=== PATIENT | male | born 1995 | race Caucasian/White ===

== ENCOUNTER 2016-08-08 10:35 | Inpatient (IN) | payer MEDICAID, OTHER ==
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
--- NOTE | 2016-08-08 11:38 | XR ---
EXAMINATION TYPE: XR wrist complete LT DATE OF EXAM: 08/08/2016 11:35 AM CLINICAL HISTORY: Punching injury with pain TECHNIQUE: Frontal, lateral, scaphoid, and oblique images of the left wrist are obtained. COMPARISON: None FINDINGS: There is no acute fracture/dislocation evident in the left wrist. The joint spaces in the left wrist appear within normal limits. The overlying soft tissue appears unremarkable. IMPRESSION: There is no acute fracture or dislocation in the left wrist.
[2016-08-08 18:48] VITALS: BMI 19.5
[2016-08-08] MEDS ORDERED: MAG HYDROX/AL HYDROX/SIMETH 30 ML CUP PO PRN (19:31)
[2016-08-08] MEDS ORDERED: ZIPRASIDONE 20 MG VIAL IM PRN (19:31)
[2016-08-08] MEDS ORDERED: ACETAMINOPHEN TAB 325 MG TAB PO PRN (19:31)
[2016-08-08] MEDS ORDERED: MAGNESIUM HYDROXIDE 2,400 MG/10 ML CUP PO PRN (19:31)
[2016-08-08] MEDS ORDERED: LORazepam 2 MG/ML SYRINGE IM PRN (19:33)
[2016-08-08] MEDS ORDERED: LORazepam 1 MG TAB PO PRN (19:33)
--- NOTE | 2016-08-09 08:53 | CONS ---
DATE OF CONSULTATION: REASON FOR CONSULTATION: Medical management. HISTORY OF PRESENT ILLNESS: Mr. Michaels is a 20-year-old male with known history of depression, presented to the ER with suicidal ideation. Apparently patient woke up in the morning and wanted to end it all. Patient has not been taking his medication for the past one week, saying that medication are making him too low and he punched his bed frame with his left hand earlier today and also he drank about a can of beer prior to arrival. Patient was intoxicated on admission. Otherwise, he denied any delusions, hallucinations, or aggressive behavior. Patient had a prior attempted suicide by hanging himself. Patient does have a history of psychiatry admission sometime in March last year. Currently, denied any complaints of chest pain. No nausea or vomiting or abdominal pain. No short of breath. No recent illnesses or sick contacts at home. REVIEW OF SYSTEMS: CONSTITUTIONAL: No fever. No chills. RESPIRATORY: No cough or sputum production. CARDIOVASCULAR: No chest pain. No short of breath. No leg swelling. ABDOMEN: No nausea or vomiting, abdominal pain. No diarrhea. GENITOURINARY: No dysuria or hematuria. ENDOCRINE: Negative. PSYCHIATRIC: ( ) All other fourteen-point review of systems negative except as above. PAST MEDICAL HISTORY: GERD, Asperger syndrome, depression, suicide attempt and bipolar disorder. PAST SURGICAL HISTORY: Appendectomy, left ankle surgery and right clavicular surgery, jaw surgery. PSYCHOSOCIAL HISTORY: Anxiety, bipolar disorder and depression. SOCIAL HISTORY: Patient is currently an everyday smoker; smokes about 2 packs per day. He does drink about 5 beers daily. Last drink was prior to admission. Patient does use marijuana daily basis. FAMILY HISTORY: Mother had cancer. Father had a history of bipolar and non-medicated. HOME MEDICATIONS: Currently none. ALLERGIES: No known drug allergies. PHYSICAL EXAMINATION: Mr. Michaels is a 20-year-old male lying in the bed, sitting in bed comfortably, awake, appears to be in no apparent distress. VITALS: Blood pressure is 123/65, pulse is 54, respiratory rate 16, temperature afebrile, pulse ox 98% on room air. HEENT: Atraumatic, normocephalic. Neck ( ) S1, S2 heard. No murmurs, no gallop. LUNGS: Bilateral air entry is present. No wheezing. No crackles. Nonlabored breathing. ABDOMEN: Soft, nontender. Bowel sounds are present. SIGN WRITER LETTERER OR PAINTER: Awake, alert, oriented x3. No focal neurologic deficits. EXTREMITIES: No edema. Pulses palpable bilaterally. No clubbing or cyanosis. PSYCHIATRIC: Cooperative, depressed and denied any suicidal ideation currently. LABORATORY DATA: Currently, laboratory data is not available at this time. UDS is positive for marijuana. X-rays of the wrist: There is no acute fracture or dislocation in the left wrist. IMPRESSION: 1. Depression with attempted suicide. 2. History of suicide attempt in the past and psychiatric admission. 3. Gastroesophageal reflux disease. 4. Alcohol abuse. Counseling for alcohol cessation and monitor for alcohol withdrawal symptoms. 5. Marijuana abuse. 6. Nicotine addiction. DISCUSSION AND PLAN: Patient will be continue to be monitored on the Psychiatric Unit. Patient was started on Geodon and Ativan p.r.n. Will continue to monitor for alcohol withdrawal symptoms and continue the current management and will follow up closely. Further recommendations based on the clinical course. Thank you for the consult.
[2016-08-09] MEDS: NICOTINE 14MG/24HR PATCH TRANSDERM SCH (08:54)
[2016-08-09 09:37] LABS: Basophils % (A) 1 %; CH 32.3; CHCM 34.3; Eosinophils # (A) 0.1 k/uL (0-0.7); Eosinophils % (A) 2 %; HCT 44.8 % (39.0-53.0); HDW 2.31; HGB 15.2 gm/dL (13.0-17.5); Luc # (Auto) 0.08; Luc % (Auto) 1; Lymphocytes # (A) 1.3 k/uL (1.0-4.8); Lymphocytes % (A) 25 %; MCH 32.1 pg (25.0-35.0); MCHC 33.9 g/dL (31.0-37.0); MCV 94.6 fL (80.0-100.0); Mean Platelet Volume 8.4; Monocytes # (A) 0.3 k/uL (0-1.0); Monocytes % (A) 6 %; Neutrophils # (A) 3.5 k/uL (1.3-7.7); Neutrophils % (A) 66 %; RBC 4.74 m/uL (4.30-5.90); RDW 12.1 % (11.5-15.5); WBC 5.3 k/uL (3.8-10.6); WBC (Perox) 5.44
[2016-08-09 09:47] LABS: ALT 26 U/L (21-72); AST 24 U/L (17-59); Alkaline Phosphatase 42 U/L (38-126); Anion Gap 11 mmol/L; Blood Urea Nitrogen 14 mg/dL (9-20); Calcium 10.2 mg/dL (8.4-10.2); Carbon Dioxide 27 mmol/L (22-30); Chloride 106 mmol/L (98-107); Glucose 105 mg/dL (74-99); Non-African American GFR(MDRD) >60 (>60 ml/min/1.73 sqM); Potassium 5.1 mmol/L (3.5-5.1); Sodium 144 mmol/L (137-145)
--- NOTE | 2016-08-09 11:50 | P.HP ---
Psychiatric H&P - . H&P Date: 08/09/16 History & Physical: Allergies Allergy/AdvReac Type Severity Reaction Status Date / Time No Known Allergies Allergy Verified 08/08/16 19:07 Vital Signs Temp 98.0 F 08/09/16 07:09 Pulse 54 L 08/09/16 07:09 Resp 18 08/09/16 07:09 BP 118/55 08/09/16 07:09 Pulse Ox 97 08/08/16 18:40 Intake & Output 08/08/16 08/09/16 08/09/16 18:59 06:59 18:59 Weight 67.4 kg 66.6 kg Laboratory Last Values WBC 5.3 k/uL (3.8-10.6) 08/09/16 09:08 RBC 4.74 m/uL (4.30-5.90) 08/09/16 09:08 Hgb 15.2 gm/dL (13.0-17.5) 08/09/16 09:08 Hct 44.8 % (39.0-53.0) 08/09/16 09:08 MCV 94.6 fL (80.0-100.0) 08/09/16 09:08 MCH 32.1 pg (25.0-35.0) 08/09/16 09:08 MCHC 33.9 g/dL (31.0-37.0) 08/09/16 09:08 RDW 12.1 % (11.5-15.5) 08/09/16 09:08 Plt Count 205 k/uL (150-450) 08/09/16 09:08 Neutrophils % 66 % 08/09/16 09:08 Lymphocytes % 25 % 08/09/16 09:08 Monocytes % 6 % 08/09/16 09:08 Eosinophils % 2 % 08/09/16 09:08 Basophils % 1 % 08/09/16 09:08 Neutrophils # 3.5 k/uL (1.3-7.7) 08/09/16 09:08 Lymphocytes # 1.3 k/uL (1.0-4.8) 08/09/16 09:08 Monocytes # 0.3 k/uL (0-1.0) 08/09/16 09:08 Eosinophils # 0.1 k/uL (0-0.7) 08/09/16 09:08 Basophils # 0.0 k/uL (0-0.2) 08/09/16 09:08 Sodium 144 mmol/L (137-145) 08/09/16 09:08 Potassium 5.1 mmol/L (3.5-5.1) 08/09/16 09:08 Chloride 106 mmol/L (98-107) 08/09/16 09:08 Carbon Dioxide 27 mmol/L (22-30) 08/09/16 09:08 Anion Gap 11 mmol/L 08/09/16 09:08 BUN 14 mg/dL (9-20) 08/09/16 09:08 Creatinine 1.00 mg/dL (0.66-1.25) 08/09/16 09:08 Est GFR (MDRD) Af Amer >60 (>60 ml/min/1.73 sqM) 08/09/16 09:08 Est GFR (MDRD) Non-Af >60 (>60 ml/min/1.73 sqM) 08/09/16 09:08 Glucose 105 mg/dL (74-99) H 08/09/16 09:08 Calcium 10.2 mg/dL (8.4-10.2) 08/09/16 09:08 Total Bilirubin 1.0 mg/dL (0.2-1.3) 08/09/16 09:08 AST 24 U/L (17-59) 08/09/16 09:08 ALT 26 U/L (21-72) 08/09/16 09:08 Alkaline Phosphatase 42 U/L (38-126) 08/09/16 09:08 Total Protein 8.0 g/dL (6.3-8.2) 08/09/16 09:08 Albumin 5.2 g/dL (3.5-5.0) H 08/09/16 09:08 TSH 1.670 mIU/L (0.465-4.680) 08/09/16 09:08 Urine Opiates Screen Not Detected (NotDetected) 08/08/16 11:30 Ur Oxycodone Screen Not Detected (NotDetected) 08/08/16 11:30 Urine Methadone Screen Not Detected (NotDetected) 08/08/16 11:30 Ur Propoxyphene Screen Not Detected (NotDetected) 08/08/16 11:30 Ur Barbiturates Screen Not Detected (NotDetected) 08/08/16 11:30 Valproic Acid <10.0 ug/mL 08/09/16 09:08 U Tricyclic Antidepress Not Detected (NotDetected) 08/08/16 11:30 Ur Phencyclidine Scrn Not Detected (NotDetected) 08/08/16 11:30 Ur Amphetamines Screen Not Detected (NotDetected) 08/08/16 11:30 U Methamphetamines Scrn Not Detected (NotDetected) 08/08/16 11:30 U Benzodiazepines Scrn Not Detected (NotDetected) 08/08/16 11:30 Urine Cocaine Screen Not Detected (NotDetected) 08/08/16 11:30 U Marijuana (THC) Screen Detected (NotDetected) H 08/08/16 11:30 08/09/16 11:35 IDENTIFYING DATA: 20-year-old single male patient. HPI: Patient admitted to the inpatient psychiatric unit [facility] on a voluntary basis with recent depression and thoughts of suicide. Patient reports that his had thoughts of suicide for approximately the past month time and a lot of depression for the past couple months. Says he attempted to kill himself before he came here, says he had a gun and was about to point it in his mouth but he told his dad and his dad called the police and they brought him here. Patient states that he has a stressor of his dad having a girlfriend and he was seeing someone but it's not as close as it was. He states that he started hearing some making out and he got upset so he was throwing stuff in his room and his dad called the able bodied seaman. He says in the past he has been hearing voices when he gets really down. He states that ever he goes in the hospital he thinks of the girlfriend of his. He admits to crying spells, decreased appetite. He admits to worrying a lot and worries about others more than he does himself. PAST PSYCHIATRIC HISTORY: He's had 6 previous psychiatric hospitalizations it sounds. He's been to [facility] in [place] in the past. When asked about suicide attempts he says like every other day and then when I asked this again he states that a couple of years ago he left the house and was talking about jumping off the bridge and was about to jump off but he stopped himself. He sees a counselor Zac at [facility] and Iesha who prescribes his medications. He most recently has been on Depakote Zoloft and Klonopin but he's been off of them for about a week. He also does state that his been taking Risperdal. He says he has been off his medications because he went back to drinking. He does have a history of diagnosis of bipolar disorder and he does have a history of manic episodes. Says the medications work for him when he took them consistently for a while. PMH: Denies ALLERGIES: No known ALLERGIES MEDICATIONS: Tylenol when necessary, Maalox when necessary, Ativan when necessary, milk of magnesia when necessary, Habitrol patch, Geodon when necessary CHEMICAL DEPENDENCY HISTORY: Used to drink daily, states he would start in the morning. Says he has not had many sobriety periods. He used to go to . He has a history of using meth, crack and cocaine. It also sounds like he has abused Xanax and Seroquel. FAMILY PSYCHIATRIC HISTORY: Not known at this time. FAMILY CHEMICAL DEPENDENCY HISTORY: None known at this time. SOCIAL HISTORY: Currently lives with his dad and stepmom. He has one step sister and 2 brothers. He does never been and does not have any children. Says he supposed to be going to school for as his "diploma. MENTAL STATUS EXAM: He is alert and cooperative with the interview. His eye contact is somewhat poor. He is tearful during the exam. His affect is restricted. His mood is described as depressed. He denies any current thoughts of harm to self or others. He does not appear to be responding to internal stimuli. He describes having some alcohol withdrawals and does have mild hand tremor. Cognitively appears very grossly intact. I do not note any significant disorientation or memory disturbance. His insight is adequate, judgment shows evidence of recent impairment. STRENGTHS/WEAKNESSES: Strengths-some support system; weaknesses-coping skills INTELLECTUAL FUNCTIONING: Average IMPRESSIONS: AXIS I : Bipolar disorder, depressed; generalized anxiety disorder; alcohol use disorder; history of polysubstance use disorder AXIS II: Deferred AXIS III: None significant AXIS IV: Relationship AXIS V: 30 PLAN: Patient admitted to the inpatient psychiatric unit on a voluntary basis. He'll placed on SP 15 minute precautions. Baseline laboratory workup and medical consultation will be ordered. We'll reinitiate psychotropic medications on Depakote ER thousand motives at bedtime for mood stabilization and Risperdal 2 mg at at time to assist with mood as well as to help prevent any psychosis symptoms. We'll initiate Zoloft at 50 more grams daily to help with depression and anxiety. He is on Ativan on a when necessary basis for any significant alcohol withdrawal or anxiety. We will look into any support systems. Estimated length of stay is 5-7 days. Prognosis is guarded. Dr. López will initiate care this patient starting tomorrow.
[2016-08-09] MEDS: SERTRALINE 50 MG TAB PO SCH (12:43)
[2016-08-09] MEDS: risperiDONE 2 MG TAB PO SCH (21:05)
[2016-08-09] MEDS: DIVALPROEX ER 500 MG TAB.ER.24H PO SCH (21:05)
[2016-08-10] MEDS: SERTRALINE 50 MG TAB PO SCH (09:03)
[2016-08-10] MEDS: NICOTINE 14MG/24HR PATCH TRANSDERM SCH (09:03)
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
[2016-08-10] MEDS: DIVALPROEX ER 500 MG TAB.ER.24H PO SCH (21:33)
[2016-08-10] MEDS: risperiDONE 2 MG TAB PO SCH (21:33)
[2016-08-11] MEDS: SERTRALINE 50 MG TAB PO SCH (09:09)
[2016-08-11] MEDS: NICOTINE 14MG/24HR PATCH TRANSDERM SCH (09:09)
--- NOTE | 2016-08-11 14:05 | P.PN ---
Progress Note - Text SUBJECTIVE: I reviewed the medical record, interviewed Mr. Michaels and discuss his treatment and treatment plan during team meeting. He is more depressed today. He is disheartened because he spoke with his father who told him that he may not return home. He described feeling hopeless and helpless but denied having suicidal thoughts, plans or intent. 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 Jose may not return home due to the threats towards his father and his father's girlfriend. His father stated that they are "in fear for her life" due to Jose's threats. Father is looking at getting apartment for the patient this week. OBJECTIVE: He presented as a casually groomed tall 20-year-old male who was pleasant on approach. He made intermittent eye contact. He sat mostly interview with his head bent over staring at the ground. He had no distinguishing features or prominent physical abnormalities. He had a depressed facial expression. He had psychomotor retardation but no abnormal involuntary movements. His speech was nonspontaneous with decreased rhythm and volume. His speech was dysarthric. His affect was depressed and not reactive. He denied current suicidal ideation or wishes. He denied homicidal ideation. He expressed depressive cognitions including hopelessness, helplessness and worthlessness. He didn't express ideas reference or paranoid ideation. His thinking is concrete but his associations were coherent, and goal directed. He denied hallucinations and did not appear to be responding to internal stimuli. ASSESSMENT: He complains of increasing depression, hopelessness and helplessness since his father will not let him to return home. PLAN: Continue inpatient hospitalizations due to continued depression and problems with disposition. Continue suicide precautions with 15 minute checks. Increase sertraline to 100 mg daily. Continue Depakote 1,000 mg at bedtime, risperidone 2 mg at bedtime. Continue the ziprasidone 20 mg IM by mouth twice a day when necessary for agitation and/or lorazepam 1 mg by mouth/IM every 8 hours when necessary for agitation. Encouraged continued participation in therapeutic groups and activities. Social work to coordinate disposition with her [facility]. Evaluate clinical status response to treatment daily basis.
[2016-08-11] MEDS: risperiDONE 2 MG TAB PO SCH (20:22)
[2016-08-11] MEDS: DIVALPROEX ER 500 MG TAB.ER.24H PO SCH (20:22)
[2016-08-12] MEDS: SERTRALINE 100 MG TAB PO SCH (08:57)
[2016-08-12] MEDS: NICOTINE 14MG/24HR PATCH TRANSDERM SCH (08:58)
--- NOTE | 2016-08-12 13:45 | P.PN ---
Progress Note - Text SUBJECTIVE: I reviewed the medical record, interviewed Mr. Michaels and discuss his treatment and treatment plan during team meeting. He is aware that he may not return home. He feels sad and expressed remorse over his behavior. He understands the reason that his father does not want him to return home. OBJECTIVE: He presented as a casually groomed 20-year-old male who was pleasant on approach. He has a depressed facial expression. He showed psychomotor retardation but no abnormal involuntary movements. His speech was not spontaneous and had decreased rhythm and volume. His speech was dysarthric. His affect was depressed and not reactive. He denied current suicidal ideation or wishes. He denied homicidal ideation. He expressed feelings of hopelessness, helplessness and worthlessness. He feels guilty and remorseful about his behavior and his father's home. He did not express ideas of reference or paranoid ideation. His thinking is concrete but his associations are coherent and logical. During team meeting health care social worker confirmed that he may not return to his father 's home. The [facility] liaison informed the team that he [facility] driver does not believe he "does not need" a intermediate. Unless his father finds a suitable apartment or a room and board we will need to discharge him to a [place] [facility] facility. ASSESSMENT: He is depressed, guilty and remorseful over his behavior at his father's home. He cannot return to his father's home and we are stymied on alternatives. PLAN: Continue inpatient psychiatric hospitalization until reaching clarify disposition. Continue Depakote 1000 mg at bedtime, Risperdal 2 mg at bedtime and sertraline 100 mg daily. Social work to coordinate disposition with family and [facility]. Encourage participation in therapeutic groups and activities. Evaluate clinical status response to treatment daily basis.
[2016-08-12] MEDS: DIVALPROEX ER 500 MG TAB.ER.24H PO SCH (20:56)
[2016-08-12] MEDS: risperiDONE 2 MG TAB PO SCH (20:57)
[2016-08-13 06:58] VITALS: BP 114/61; PULSE 43; RESP 12; TEMP 97.5
[2016-08-13] MEDS: NICOTINE 14MG/24HR PATCH TRANSDERM SCH (09:15)
[2016-08-13] MEDS: SERTRALINE 100 MG TAB PO SCH (09:15)
[2016-08-13 10:28] LABS: Amorphous Sediment,Urine Occasional /hpf; Appearance,Urine Clear (Clear); Bilirubin,Urine Negative (Negative); Glucose,Urine (UA) Negative (Negative); Ketones,Urine Trace (Negative); Leukocyte Esterase,Urine Trace (Negative); Mucus,Urine Rare /hpf; Nitrite,Urine Negative (Negative); PH, Urine 6.5 (5.0-8.0); Particle Count 4146; Protein,Urine Negative (Negative); Specific Gravity,Urine 1.016 (1.001-1.035); UA Billing (MACRO vs. MICRO) MICRO; Urobilinogen,Urine <2.0 mg/dL (<2.0); WBC,Urine 1 /hpf (0-5)
--- NOTE | 2016-08-13 16:12 | P.DS ---
Providers Date of admission: 08/08/16 12:45 Attending physician: Arsalan López MD Consults: 08/08/16 19:31 Consult Physician Routine Consulting Provider: Shanice Hamlin Consult Reason/Comments: follow up H & P Do you want consulting provider notified?: Already Contacted Primary care physician: Briseida Bran - Discharge Diagnosis(es) (1) Major depressive disorder, recurrent Current Visit: Yes Status: Chronic Priority: Low (2) Borderline intellectual functioning Current Visit: Yes Status: Chronic Priority: Medium (3) Impulse control disorder in adult Current Visit: Yes Status: Chronic Priority: High (4) Suicidal ideation Current Visit: No Status: Resolved Priority: Low Hospital Course: He is a 20-year-old single male who has a history of a developmental disability. According to the record he presented with depression and thoughts of suicide. He told the admitting psychiatrist that his dad brought him to the hospital because he told his father that he was thinking about shooting himself with a gun. He alleged that he was feeling depressed because he feels abandoned by his father. He was drinking alcohol (6 cans of beer) on Wednesday before admission and one can of beer in the day of admission. He is jealous of his father is spending less time with him since his father has a new girlfriend. However, he is no longer feeling distressed, angry or having thoughts of or suicide. We admitted him voluntarily to the psychiatric unit and provided a biopsychosocial assessment. The residential solar consultant sheriffs detective completed the initial physical exam and medical history. The residential solar consultant diagnoses included GERD, alcohol abuse, marijuana abuse and nicotine use disorder. He is developmentally disabled and has a history of a seizure disorder. He's been living with his father and he is shown recurrent behavioral problems including threats to himself. We resumed his outpatient medications including Depakote 1000 mg at bedtime, Risperdal 2 mg at bedtime and sertraline 100 mg daily. He did not require administration of when necessary medications for agitation or aggression. He denied thoughts of suicide soon after discharge and requested to return to his father's home. The socially responsible investment adviser spoke with his father who stated that he does not want Jose to return because he andhisgirlfriend are afraid of Jose. Jose accepted the news that he cannot return to his father's home without displaying behavioral dyscontrol. [facility] was not interested in providing [facility] services. The socially responsible investment adviser coordinated referral to a room and board with Jose's father. At the time of his discharge Jose denied depression or thoughts of or suicide. He denied psychotic symptoms such as auditory or visual hallucinations, ideas reference, thought insertion, thought broadcasting or thought control. He was excited about living independently and agreed to follow through with outpatient mental health treatment. Patient Condition at Discharge: Good Plan - Discharge Summary New Discharge Prescriptions: Divalproex ER [Depakote ER] 1,000 mg PO HS 30 Days Nicotine 14Mg/24Hr Patch [Habitrol] 1 patch TRANSDERM DAILY #7 patch Sertraline [Zoloft] 100 mg PO HS 30 Days risperiDONE [RisperDAL] 2 mg PO DAILY 30 Days Discharge Medication List Divalproex ER [Depakote ER] 1,000 mg PO HS 30 Days 08/13/16 [Rx] Nicotine 14Mg/24Hr Patch [Habitrol] 1 patch TRANSDERM DAILY #7 patch 08/13/16 [ Rx] Sertraline [Zoloft] 100 mg PO HS 30 Days 08/13/16 [Rx] risperiDONE [RisperDAL] 2 mg PO DAILY 30 Days 08/13/16 [Rx] Follow up Appointment(s)/Referral(s): [facility], [place] [Other] - 08/18/16 4:30 pm (Norma Reyes) [place] [facility] [Outside] - 08/18/16 3:40 pm (Zac Reese ) Patient Instructions/Handouts: Mood Disorders (DC), Suicide Prevention for Adults (DC) Activity/Diet/Wound Care/Special Instructions: activity and diet as tolerated. no guns or weapons in the home. please attend all follow up appointments as scheduled. take all medications as prescribed. refrain from any substances, drug or alcohol not prescribed by physician. please return to the ER if symptoms worsen. Discharge Disposition: HOME SELF-CARE
== END 2016-08-13 15:59 | disposition home or self-care (01) | DRG 885 ==
LOC: EC 10:35 → 3MHU 12:45
PROVIDERS: ADMIT Psychiatry & Neurology Psychiatry; ATTEND Psychiatry & Neurology Psychiatry
DX: F33.9 Major depressive disorder, recurrent, unspecified (principal); G40.909 Epilepsy, unspecified, not intractable, without status epilepticus; R45.851 Suicidal ideations; F10.239 Alcohol dependence with withdrawal, unspecified; F12.10 Cannabis abuse, uncomplicated; F17.210 Nicotine dependence, cigarettes, uncomplicated; F41.1 Generalized anxiety disorder; F63.9 Impulse disorder, unspecified; F84.5 Asperger's syndrome; K21.9 Gastro-esophageal reflux disease without esophagitis; Z91.5 Personal history of self-harm; Z79.899 Other long term (current) drug therapy
CPT/HCPCS: 80053; 80164; 80306; 81001; 84443; 85025; 99285

== ENCOUNTER 2016-10-14 10:14 | Emergency (ER) | payer OTHER ==
[2016-10-14] MEDS ORDERED: ONDANSETRON 4 MG/2 ML VIAL IVP STA (10:23)
[2016-10-14] MEDS ORDERED: SODIUM CHLORIDE 0.9% 1,000 ML IV STA (10:23)
[2016-10-14 10:24] LABS: Glucose,Whole Blood 82 mg/dL (75-99)
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
[2016-10-14 10:59] LABS: Basophils # (A) 0.1 k/uL (0-0.2); Basophils % (A) 1 %; CH 32.2; CHCM 33.8; Eosinophils # (A) 0.1 k/uL (0-0.7); Eosinophils % (A) 1 %; HCT 44.2 % (39.0-53.0); HGB 14.7 gm/dL (13.0-17.5); Luc # (Auto) 0.07; Luc % (Auto) 1; Lymphocytes # (A) 0.9 k/uL (1.0-4.8); Lymphocytes % (A) 18 %; MCH 31.8 pg (25.0-35.0); MCHC 33.3 g/dL (31.0-37.0); MCV 95.5 fL (80.0-100.0); Mean Platelet Volume 8.1; Monocytes # (A) 0.2 k/uL (0-1.0); Monocytes % (A) 4 %; Neutrophils % (A) 75 %; RBC 4.63 m/uL (4.30-5.90); RDW 12.3 % (11.5-15.5); WBC 5.3 k/uL (3.8-10.6); WBC (Perox) 5.12
[2016-10-14 11:11] LABS: ALT 30 U/L (21-72); AST 30 U/L (17-59); Alkaline Phosphatase 45 U/L (38-126); Amylase 69 U/L (30-110); Anion Gap 16 mmol/L; Blood Urea Nitrogen 17 mg/dL (9-20); Calcium 9.7 mg/dL (8.4-10.2); Carbon Dioxide 24 mmol/L (22-30); Chloride 105 mmol/L (98-107); Glucose 74 mg/dL (74-99); Non-African American GFR(MDRD) >60 (>60 ml/min/1.73 sqM); Potassium 4.2 mmol/L (3.5-5.1); Sodium 145 mmol/L (137-145); Total Bilirubin 0.8 mg/dL (0.2-1.3)
[2016-10-14 12:19] LABS: Glucose,Whole Blood 97 mg/dL (75-99)
[2016-10-14 13:06] VITALS: BP 107/92; PULSE 50; RESP 20; TEMP 98
== END 2016-10-14 13:06 | disposition home or self-care (01) ==
LOC: EC 10:14
DX: E16.2 Hypoglycemia, unspecified (principal); F10.10 Alcohol abuse, uncomplicated; R51 Headache; F31.9 Bipolar disorder, unspecified; F41.9 Anxiety disorder, unspecified; F17.200 Nicotine dependence, unspecified, uncomplicated; Z79.899 Other long term (current) drug therapy
CPT/HCPCS: 36415; 80053; 82150; 83690; 85025; 99285; 96374; 96361; J2405

== ENCOUNTER 2016-10-24 19:32 | Inpatient (IN) | payer MEDICAID, OTHER ==
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
[2016-10-25] MEDS ORDERED: ZIPRASIDONE 20 MG VIAL IM STA (00:04)
[2016-10-25] MEDS ORDERED: LORazepam 2 MG/ML SYRINGE IM STA (00:04)
[2016-10-25] MEDS ORDERED: ZIPRASIDONE 20 MG VIAL IM PRN (01:15)
[2016-10-25] MEDS ORDERED: LORazepam 1 MG TAB PO PRN (01:15)
[2016-10-25] MEDS ORDERED: MAG HYDROX/AL HYDROX/SIMETH 30 ML CUP PO PRN (01:15)
[2016-10-25] MEDS ORDERED: MAGNESIUM HYDROXIDE 2,400 MG/10 ML CUP PO PRN (01:15)
[2016-10-25] MEDS ORDERED: ACETAMINOPHEN TAB 325 MG TAB PO PRN (01:15)
[2016-10-25 11:20] LABS: Basophils % (A) 1 %; CH 32.1; CHCM 33.3; Eosinophils # (A) 0.1 k/uL (0-0.7); Eosinophils % (A) 3 %; HCT 48.7 % (39.0-53.0); HDW 2.17; HGB 15.8 gm/dL (13.0-17.5); Luc # (Auto) 0.09; Luc % (Auto) 2; Lymphocytes # (A) 1.9 k/uL (1.0-4.8); Lymphocytes % (A) 39 %; MCH 31.3 pg (25.0-35.0); MCHC 32.5 g/dL (31.0-37.0); MCV 96.6 fL (80.0-100.0); Mean Platelet Volume 7.9; Monocytes # (A) 0.3 k/uL (0-1.0); Monocytes % (A) 5 %; Neutrophils # (A) 2.4 k/uL (1.3-7.7); Neutrophils % (A) 50 %; RBC 5.04 m/uL (4.30-5.90); WBC 4.9 k/uL (3.8-10.6); WBC (Perox) 5.11
[2016-10-25 11:29] LABS: ALT 35 U/L (21-72); AST 34 U/L (17-59); Alkaline Phosphatase 41 U/L (38-126); Anion Gap 13 mmol/L; Blood Urea Nitrogen 14 mg/dL (9-20); Calcium 9.9 mg/dL (8.4-10.2); Carbon Dioxide 27 mmol/L (22-30); Chloride 105 mmol/L (98-107); Glucose 78 mg/dL (74-99); Non-African American GFR(MDRD) >60 (>60 ml/min/1.73 sqM); Potassium 4.1 mmol/L (3.5-5.1); Sodium 145 mmol/L (137-145); Total Protein 7.9 g/dL (6.3-8.2)
--- NOTE | 2016-10-25 14:09 | CONS ---
DATE OF CONSULTATION: REASON FOR CONSULTATION: Medical clearance. Patient is 20-year-old admitted for suicidal ideation. Patient denied any fever or chills. Patient denied any nausea, vomiting, abdominal pain. Patient attempted suicide with handful of Depakote. Patient is not ( ) at this point of time. Patient is clinically doing well. Vitals are stable. Patient will not need any inpatient medical hospitalization. REVIEW OF SYSTEMS: CONSTITUTIONAL: No fever, no malaise, no fatigue. HEENT: No recent visual problems or hearing problems. Denied any sore throat. CARDIOVASCULAR: No chest pain, orthopnea, PND, no palpitations, no syncope. PULMONARY: No shortness of breath, no cough, no hemoptysis. GASTROINTESTINAL: No diarrhea, no nausea, no vomiting, no abdominal pain. Normoactive bowel sounds. NEUROLOGICAL: No headaches, no weakness, no numbness. HEMATOLOGICAL: Denies any bleeding or petechiae. GENITOURINARY: Denies any burning micturition, frequency, or urgency. MUSCULOSKELETAL/RHEUMATOLOGICAL: Denies any joint pain, swelling, or any muscle pain. ENDOCRINE: Denies any polyuria or polydipsia. The rest of the 14 point review of systems is negative. Home medications include: Risperidone, Depakote and Sertraline. PAST MEDICAL HISTORY: Significant for gastroesophageal reflux disease, ( ) syndrome, appendectomy, orthopedic surgery, tonsillectomy, anxiety, bipolar disorder. SOCIAL HISTORY: Occasional marijuana use. Patient does smoke daily. Denied any alcohol abuse. FAMILY HISTORY: Significant for cancer, bipolar. PHYSICAL EXAMINATION: VITAL SIGNS: Temperature 98.3, pulse of 58, respiratory rate of 16. Blood pressure 122/72. Saturating at 100% on room air. GENERAL: The patient is alert and oriented x3, not in any acute distress. Well developed, well nourished. HEENT: Pupils are round and equally reacting to light. EOMI. No scleral icterus. No conjunctival pallor. Normocephalic, atraumatic. No pharyngeal erythema. No thyromegaly. CARDIOVASCULAR: S1 and S2 present. No murmurs, rubs, or gallops. PULMONARY: Chest is clear to auscultation, no wheezing or crackles. ABDOMEN: Soft, nontender, nondistended, normoactive bowel sounds. No palpable organomegaly. MUSCULOSKELETAL: No joint swelling or deformity. EXTREMITIES: No cyanosis, clubbing, or pedal edema. NEUROLOGICAL: Gross neurological examination did not reveal any focal deficits. SKIN: No rashes. LABORATORY DATA: CBC, CMP essentially within normal limits. Urine drug screen is positive for marijuana. ASSESSMENT AND PLAN: 1. Attempted suicide with Depakote. Patient does not need to be admitted to inpatient medicine for monitoring. The patient's vitals and lab data are essentially within normal limits. 2. Asperger syndrome, suicidal ideation and depression. Management as per primary service. 3. Marijuana use. Counseling was provided. 4. Nicotine abuse. Counseling was provided. Thank you for letting me participate in this patient's care. We will sign off at this point of time. No further recommendations from medical perspective. Please call us back if needed.
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
[2016-10-25] MEDS: SERTRALINE 100 MG TAB PO SCH (20:53)
[2016-10-25] MEDS: risperiDONE 2 MG TAB PO SCH (20:53)
[2016-10-25] MEDS: DIVALPROEX ER 500 MG TAB.ER.24H PO SCH (20:54)
[2016-10-25] MEDS ORDERED: DIVALPROEX ER 500 MG TAB.ER.24H PO SCH (21:00)
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
[2016-10-26] MEDS: DIVALPROEX ER 500 MG TAB.ER.24H PO SCH (21:38)
[2016-10-26] MEDS: risperiDONE 2 MG TAB PO SCH (21:39)
[2016-10-26] MEDS: SERTRALINE 100 MG TAB PO SCH (21:39)
--- NOTE | 2016-10-27 10:21 | P.PN ---
Progress Note - Text Interval history: The patient is found in his room he follows me to an interview room. He reports his mood is "okay". He reports having some difficulty sleeping last night appetite is stable. He is troubled by a recent phone call from his father's girlfriend. He states she continues to accuse him of things. He admits that "she annoys me" and he will yell and break things when they argue. He states that she excessively drinks alcohol which makes matters worse. The patient feels that he is adapting to the increased dose of Depakote. He has no questions related to his medication. He is not sure where he will reside upon discharge. Mental status exam: The patient is a thin male appearing his stated age. He has a disheveled appearance he is wearing the same clothing is yesterday. Eye contact is intermittent speech is fluent slow and mainly responsive to questions asked. Insight and judgment chronically limited cognitive abilities chronically limited. He reports feeling safe in the hospital he continues to feel frustrated with his father's girlfriend. He is endorsing no auditory or visual hallucinations he is endorsing no specific delusions. He does not appear hypomanic or manic. He demonstrates no verbal or physical aggressiveness. Plan: The patient will continue on the Depakote we will draw a level in the next 2 days. We will discuss placement options for him. We will continue to monitor him for safety and encourage his participation in the milieu.
[2016-10-27] MEDS: SERTRALINE 100 MG TAB PO SCH (21:37)
[2016-10-27] MEDS: DIVALPROEX ER 500 MG TAB.ER.24H PO SCH (21:37)
[2016-10-27] MEDS: risperiDONE 2 MG TAB PO SCH (21:37)
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
[2016-10-28] MEDS: DIVALPROEX ER 500 MG TAB.ER.24H PO SCH (20:49)
[2016-10-28] MEDS: SERTRALINE 100 MG TAB PO SCH (20:50)
[2016-10-28] MEDS: risperiDONE 2 MG TAB PO SCH (20:50)
--- NOTE | 2016-10-29 10:58 | P.PN ---
Progress Note - Text Interval history: The patient is found in his room he reports he feels tired. He states he typically does not get up early in the morning and sleeps in. He reports that he will attend afternoon groups. Social work informed me that the patient's grandparents have made contact with our mental health unit and they may be able to provide assistance with placement. The patient is also on the skilled nursing list through [facility] as we all agree that the patient would not be able to appropriately care for himself unassisted. The patient's Depakote level is in the therapeutic range at 93.4 liver function enzymes are within normal limits. Mental status exam: The patient is alert he is lying in bed eye contact is appropriate speech is fluent spontaneous nonpressured. He has a disheveled appearance. He is reporting no acute suicidal or homicidal ideation intent or plan he endorses no symptoms of psychosis. He does not appear hypomanic or manic. There is no verbal or physical aggressiveness. No abnormal involuntary movements observed. Affect is constricted. Insight and judgment chronically impaired. Plan: The patient will continue on his current medications. We are exploring appropriate placement options for him which may involve his grandparents. We will continue to monitor him for safety and encourage his full participation in the milieu.
[2016-10-29] MEDS: SERTRALINE 100 MG TAB PO SCH (20:39)
[2016-10-29] MEDS: risperiDONE 2 MG TAB PO SCH (20:39)
[2016-10-29] MEDS: DIVALPROEX ER 500 MG TAB.ER.24H PO SCH (20:39)
--- NOTE | 2016-10-30 09:32 | P.PN ---
Progress Note - Text Interval history: The patient is found in his room he follows me to an interview room. He reports having a phone conversation with his grandparents and apparently they are working on helping him find placement. He states he expects placement will be in this area. He has been going to meals he selectively attend groups in the afternoon he tends to stay in his room in the morning stating "I'm not a morning person". He has no questions or concerns regarding his medications. Mental status exam: The patient is cooperative he has a disheveled appearance he is dressed in his own clothing. Eye contact is intermittent. He reports his mood is "fine" affect is constricted. He is reporting no suicidal or homicidal ideation intent or plan he is endorsing no auditory or visual hallucinations there is no evidence of psychosis. He is demonstrating no aggressive behavior at this time. He does have a history of impulsive agitation however. Insight and judgment chronically limited. Plan: The patient will continue on his current medications, we continue to seek appropriate placement for this patient upon discharge. Social work is communicating with the patient's grandparents to assist. We will continue to monitor him for safety. Vital signs reviewed.
[2016-10-30] MEDS: DIVALPROEX ER 500 MG TAB.ER.24H PO SCH (21:14)
[2016-10-30] MEDS: risperiDONE 2 MG TAB PO SCH (21:14)
[2016-10-30] MEDS: SERTRALINE 100 MG TAB PO SCH (21:15)
--- NOTE | 2016-10-31 09:40 | P.PN ---
Progress Note - Text Interval history: The patient is found in his room. He was observed earlier this morning coming from the dining room he reports eating breakfast. He states that he slept throughout the night. He inquires as to when he will be discharged and we continue to explore appropriate placement options. He is on the [facility] nursing home wait list and social work is also working with the patient's grandparents to try to arrange alternative placement. They do not want him living in their home however. The patient reports no agitated behavior no aggressive feelings. He continues to isolate in his room in the morning and comes out of his room in the afternoon. Mental status exam: The patient's a thin male appearing his stated age. He has a disheveled appearance hygiene is fair. Eye contact is appropriate speech is fluent. He provides brief answers to questions asked. He is reporting no suicidal or homicidal ideation intent or plan. He is endorsing no auditory or visual hallucinations he endorses no specific delusions. He demonstrates no verbal or physical aggressiveness. He does not appear hypomanic or manic currently. He remains oriented to person place and date. He has chronic cognitive limitations insight and judgment chronically limited. Plan: The patient will continue on his current medications. Vital signs reviewed. His heart rate has been low several times during the admission today is the lowest at 33. We previously ordered an EKG and are awaiting those results. It appears he had a normal heart rate is 76 yesterday afternoon. We will continue to monitor. He is reporting no dizziness chest pain or any other physical symptoms at this time. We will continue to monitor for safety and encourage full participation in the milieu.
[2016-10-31 18:48] LABS: Amorphous Sediment,Urine Occasional /hpf; Appearance,Urine Turbid (Clear); Bacteria,Urine Rare /hpf; Bilirubin,Urine Negative (Negative); Glucose,Urine (UA) Negative (Negative); Ketones,Urine 1+ (Negative); Leukocyte Esterase,Urine Negative (Negative); Nitrite,Urine Negative (Negative); PH, Urine 7.5 (5.0-8.0); Particle Count 7443; Protein,Urine Negative (Negative); Specific Gravity,Urine 1.017 (1.001-1.035); UA Billing (MACRO vs. MICRO) MICRO; Urobilinogen,Urine <2.0 mg/dL (<2.0); WBC,Urine 20 /hpf (0-5)
[2016-10-31] MEDS: risperiDONE 2 MG TAB PO SCH (20:49)
[2016-10-31] MEDS: DIVALPROEX ER 500 MG TAB.ER.24H PO SCH (20:50)
[2016-10-31] MEDS: SERTRALINE 100 MG TAB PO SCH (20:50)
[2016-10-31] MEDS ORDERED: CIPROFLOXACIN HCL 500 MG TAB ONE (22:17)
[2016-11-01] MEDS: CIPROFLOXACIN HCL 500 MG TAB PO SCH ×2 (09:42→20:49)
--- NOTE | 2016-11-01 10:18 | P.PN ---
Progress Note - Text Interval history: The patient's is found in his room he is awake lying in bed. He was up early this morning for breakfast. He typically does not attend groups in the morning but states he does in the afternoon. He is reporting no current mood symptoms. He is looking forward to a visit from his grandparents this evening. He has no questions regarding current medications. Vital signs reviewed. Heart rate continues to be bradycardic however he does have some normal readings as well. EKG demonstrated sinus bradycardia. He is reporting no dizziness and no difficulties with ambulation. Mental status exam: The patient is alert lying in bed he participates in the conversation appropriately. He states his mood is fine he is looking forward to being discharged. He is reporting no suicidal or homicidal ideation intent or plan. He is endorsing no auditory or visual hallucinations no specific delusions. Speech is spontaneous fluent nonpressured. Thought process is linear there is no flight of ideas loose associations or tangential thinking. He demonstrates no verbal or physical aggressiveness. Insight and judgment improving. No abnormal involuntary movements observed. Plan: The patient will continue on his current psychotropic medications. We will continue to monitor his vital signs. He is encouraged to participate in the milieu in the morning hours and ambulate more. We are waiting appropriate placement for him.
[2016-11-01] MEDS: DIVALPROEX ER 500 MG TAB.ER.24H PO SCH (20:49)
[2016-11-01] MEDS: risperiDONE 2 MG TAB PO SCH (20:49)
[2016-11-01] MEDS: SERTRALINE 100 MG TAB PO SCH (20:49)
[2016-11-02 09:52] LABS: Basophils % (A) 1 %; CH 31.9; CHCM 33.5; Eosinophils # (A) 0.2 k/uL (0-0.7); Eosinophils % (A) 4 %; HCT 43.5 % (39.0-53.0); HDW 2.15; HGB 14.4 gm/dL (13.0-17.5); Luc # (Auto) 0.09; Luc % (Auto) 2; Lymphocytes # (A) 2.2 k/uL (1.0-4.8); Lymphocytes % (A) 40 %; MCH 31.6 pg (25.0-35.0); MCHC 33.1 g/dL (31.0-37.0); MCV 95.5 fL (80.0-100.0); Mean Platelet Volume 8.1; Monocytes # (A) 0.4 k/uL (0-1.0); Monocytes % (A) 7 %; Neutrophils # (A) 2.6 k/uL (1.3-7.7); Neutrophils % (A) 47 %; RBC 4.56 m/uL (4.30-5.90); WBC 5.4 k/uL (3.8-10.6); WBC (Perox) 5.57
[2016-11-02] MEDS: CIPROFLOXACIN HCL 500 MG TAB PO SCH ×2 (09:53→20:50)
--- NOTE | 2016-11-02 10:24 | P.PN ---
Progress Note - Text Interval history: The patient is found in his room he is awake. He reports that his grandparents did visit. He [facility] who gave him an [facility] listing as well. He describes excessive fatigue still in the morning and wonders if it is related to our titration of Depakote. We decided we would reduce the dose by 250 mg. The patient continues to eat he isolates in his room not participating in groups. Mental status exam: The patient is lying in bed he is covered with a blanket eye contact is appropriate speech is fluent spontaneous nonpressured. He demonstrates an appropriate range of affect. He states his mood is "good". He denies having any suicidal or homicidal ideation intent or plan. He is reporting no auditory or visual hallucinations. He is demonstrating no verbal or physical aggressiveness. Insight and judgment chronically limited. He is endorsing no specific delusions. He is oriented. Plan: The patient will continue on the Depakote ER but we will reduce the total dose to 1250 mg in the evening. He will continue on the Risperdal and Zoloft as written. Vital signs reviewed he continues to be bradycardic but the last 2 readings have been mildly improved. Again he denies any symptoms of dizziness. Fatigue could be related to bradycardia.
[2016-11-02 10:46] LABS: Anion Gap 10 mmol/L; Blood Urea Nitrogen 14 mg/dL (9-20); Calcium 9.7 mg/dL (8.4-10.2); Carbon Dioxide 31 mmol/L (22-30); Chloride 102 mmol/L (98-107); Glucose 74 mg/dL (74-99); Non-African American GFR(MDRD) >60 (>60 ml/min/1.73 sqM); Potassium 4.8 mmol/L (3.5-5.1); Sodium 143 mmol/L (137-145)
[2016-11-02] MEDS: DIVALPROEX ER 250 MG TAB.ER.24H PO SCH (20:50)
[2016-11-02] MEDS: SERTRALINE 100 MG TAB PO SCH (20:51)
[2016-11-02] MEDS: risperiDONE 2 MG TAB PO SCH (20:51)
--- NOTE | 2016-11-03 08:28 | P.PN ---
Progress Note - Text Interval history: The patient is found in the hallway as he was heading to the dining room for breakfast. He follows me to an interview room. He reports he slept well last night staff documented 7 hours. Appetite is stable. We discussed his bradycardia as a contributing etiology to his feelings of fatigue. Vital signs reviewed heart rate remains variable. He reports no dizziness he ambulates without ataxia. We have requested further input from internal medicine. The patient's selectively attended groups mostly in the afternoon. His grandparents have sought out guardianship and we are waiting assisted placement has a temporary means of getting him into his own apartment. The patient has no further questions or concerns regarding his medication. Status exam: The patient is a thin male appearing his stated age he seated calmly is a disheveled appearance hygiene is adequate. Speech is responsive to questions asked with no spontaneous speech today. He maintains a constricted affect. He reports his mood is "fine". He reports no suicidal or homicidal ideation intent or plan. He is endorsing no auditory or visual hallucinations. He has not demonstrated any agitated behavior. Insight and judgment chronically limited. He is oriented. Plan: The patient's will be continued on his current psychotropic medications. We have asked for further internal medicine input regarding bradycardia. He may just need further workup as an outpatient with cardiology likely Holter monitoring. We are waiting assisted placement. We will continue to monitor the patient for safety.
[2016-11-03] MEDS: CIPROFLOXACIN HCL 500 MG TAB PO SCH ×2 (10:02→20:52)
[2016-11-03] MEDS: DIVALPROEX ER 250 MG TAB.ER.24H PO SCH (20:52)
[2016-11-03] MEDS: SERTRALINE 100 MG TAB PO SCH (20:52)
[2016-11-03] MEDS: risperiDONE 2 MG TAB PO SCH (20:52)
[2016-11-04 07:22] VITALS: BP 93/51; PULSE 38; RESP 16; TEMP 98.6
--- NOTE | 2016-11-04 09:50 | P.DS ---
Providers Date of admission: 10/25/16 00:06 Expected date of discharge: 11/04/16 Attending physician: Angel Luis Islas Consults: 10/25/16 01:15 Consult Physician Routine Consulting Provider: Shanice Hamlin Consult Reason/Comments: H and P with medical follow up Do you want consulting provider notified?: Yes, Notify in am 11/01/16 10:49 Consult Physician Routine Consulting Provider: Faith Kevin Consult Reason/Comments: bradycardia Do you want consulting provider notified?: Yes Primary care physician: Briseida Bran - Discharge Diagnosis(es) (1) Depression Current Visit: Yes Status: Acute Priority: High (2) Borderline intellectual functioning Current Visit: Yes Status: Acute Priority: Medium Hospital Course: Brief summary of admission note: This patient is a 20-year-old single male who was admitted to the mental health unit by Dr. Hogan for agitated behavior with some suicidal thinking. The patient explained to me that he had become acutely upset that his father's girlfriend had accused him of stealing her Xanax. He states that he did not and that she in fact drinks all day. He became admittedly acutely agitated. There was report that he attempted to overdose with Depakote but was stopped. He presented to the emergency room and was subsequently admitted. For full details please refer to Dr. Hogan's psychiatric evaluation dated 10/25/2016. Summary of hospital course: The patient was admitted to the mental health unit he signed in voluntarily. We reviewed his presenting symptoms [facility] records and Dr. Hogan's evaluation. He had been managed with Risperdal and Zoloft as well as Depakote. The Depakote was increased. His initial Depakote level was subtherapeutic the subsequent level was found to be therapeutic on the increased dose. The patient had some initial agitation in the evenings early into the admission but this subsided and he has demonstrated no agitated behavior for approximately the last week. He was residing with his father's girlfriend however he is not able to return there. His father is currently incarcerated. The patient does have grandparents in the [facility] and they have obtained temporary guardianship of the patient. We discussed appropriate placement and he will be going to [facility] temporarily until more independent living is appropriately arranged. The patient reported feeling tired in the morning he usually got up early afternoon and participated in groups. He did get up for breakfast each morning. He has a chronic bradycardia an EKG was performed which was demonstrating a sinus rhythm. He will need to follow-up as an outpatient further. His Depakote was initially increased to 1500 mg at bedtime this was reduced to 1250 mg at bedtime trying to alleviate any sedation in the morning. He was found to have a urinary tract infection and was started on antibiotic. Mental status exam: The patient is a thin male he is alert eye contact is appropriate speech is fluent and he responds to questions asked. He demonstrates no verbal or physical aggressiveness. He states his mood is "good ". He denies having any suicidal or homicidal ideation intent or plan. He is endorsing no auditory or visual hallucinations he endorses no specific delusions there is no overt evidence of psychosis. He is not appear hypomanic or manic. He is demonstrating no tangential thinking loose associations or flight of ideas. He remains oriented to person place month and year. He demonstrates no abnormal involuntary movements. Affect in general is constricted there is some reactivity in terms of affect at times. Insight and judgment have sufficiently improved he is aware that his grandparents are his guardian and that he will be going to a [facility] temporarily until other placement can be arranged. Impressions 1. Depression unspecified, rule out major depressive disorder versus bipolar depression, borderline intellectual functioning, history of cannabis and cocaine use disorders Plan: The patient will be discharged mental health unit today he will be transferred to [facility] temporarily until other placement is found. His grandparents are his legal guardian. He will continue on Risperdal 2 mg at bedtime, Zoloft 100 mg at bedtime, Depakote ER 1250 mg at bedtime, he will complete a course of Cipro for a urinary tract infection. He is instructed to abstain from any use of alcohol marijuana or illicit drugs. He does not wish to participate in inpatient chemical dependency treatment but is willing to discuss these issues further with his outpatient the mental health appointment. Social work will confirm his appointment with [facility]. He is not imminent safety risk and is appropriate for transition to outpatient care. He is instructed to return to the hospital any acute safety concerns. Patient Condition at Discharge: Stable Plan - Discharge Summary New Discharge Prescriptions: Ciprofloxacin HCl [Cipro] 500 mg PO BID #4 tab Divalproex ER [Depakote ER] 1,250 mg PO HS #30 tab Divalproex ER [Depakote ER] 1,000 mg PO HS 30 Days risperiDONE [RisperDAL] 2 mg PO HS #30 Sertraline [Zoloft] 100 mg PO HS 30 Days Discharge Medication List Ciprofloxacin HCl [Cipro] 500 mg PO BID #4 tab 11/04/16 [Rx] Divalproex ER [Depakote ER] 1,000 mg PO HS 30 Days 11/04/16 [Rx] Divalproex ER [Depakote ER] 1,250 mg PO HS #30 tab 11/04/16 [Rx] Sertraline [Zoloft] 100 mg PO HS 30 Days 11/04/16 [Rx] risperiDONE [RisperDAL] 2 mg PO HS #30 11/04/16 [Rx] Follow up Appointment(s)/Referral(s): Shant Goins MD [Primary Care Provider] - 1-2 days
[2016-11-04] MEDS: CIPROFLOXACIN HCL 500 MG TAB PO SCH (10:22)
== END 2016-11-04 18:15 | disposition home or self-care (01) | DRG 885 ==
LOC: EC 19:32 → 3MHU 10-25 00:06
PROVIDERS: ADMIT Psychiatry & Neurology Psychiatry; ATTEND Psychiatry & Neurology Psychiatry
DX: F31.9 Bipolar disorder, unspecified (principal); R45.851 Suicidal ideations; N39.0 Urinary tract infection, site not specified; F84.5 Asperger's syndrome; F41.1 Generalized anxiety disorder; F17.200 Nicotine dependence, unspecified, uncomplicated; F12.90 Cannabis use, unspecified, uncomplicated; K21.9 Gastro-esophageal reflux disease without esophagitis; R41.83 Borderline intellectual functioning; Z79.899 Other long term (current) drug therapy; Z81.8 Family history of other mental and behavioral disorders
CPT/HCPCS: 80048; 80053; 80164; 80306; 81001; 82075; 84443; 84450; 84460; 85025; 93005

== ENCOUNTER 2017-11-29 20:08 | Emergency (ER) | payer OTHER ==
[2017-11-29 20:20] VITALS: RESP 18
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
[2017-11-29 21:29] LABS: Amphetamine Screen,Urine Not Detected (NotDetected); Barbiturate Screen,Urine Not Detected (NotDetected); Benzodiazepines Screen,Urine Not Detected (NotDetected); Cocaine Screen,Urine Not Detected (NotDetected); Methadone Screen, Urine Not Detected (NotDetected); Opiate Screen,Urine Not Detected (NotDetected); Oxycodone Screen, Urine Not Detected (NotDetected); Phencyclidine Screen,Urine Not Detected (NotDetected); Tricyclic Antidepressant,Urine Not Detected (NotDetected); Urn Cannabinoid Scrn Not Detected (NotDetected)
[2017-11-29 23:20] VITALS: BP 119/66; PULSE 64; TEMP 99.1
== END 2017-11-29 23:58 | disposition home or self-care (01) ==
LOC: EC 20:08
DX: T14.91XA Suicide attempt, initial encounter (principal); F31.9 Bipolar disorder, unspecified; F17.200 Nicotine dependence, unspecified, uncomplicated; Z79.899 Other long term (current) drug therapy; X83.8XXA Intentional self-harm by other specified means, initial encounter; Y92.099 Unspecified place in other non-institutional residence as the place of occurrence of the external cause
CPT/HCPCS: 80306; 82075; 99285

== ENCOUNTER 2018-04-23 03:05 | Inpatient (IN) | payer OTHER ==
[2018-04-23] MEDS ORDERED: ETOMIDATE 2 MG/ML 10 ML VIAL IVP STA (03:56)
[2018-04-23] MEDS: PROPOFOL 1,000 MG in EMPTY BAG 1 BAG IV ONE ×2 (03:56→13:23)
[2018-04-23] MEDS ORDERED: SUCCINYLCHOLINE CHLORIDE VIAL 200 MG/10 ML VIAL IV STA (03:56)
--- NOTE | 2018-04-23 04:11 | XR ---
EXAMINATION TYPE: XR chest 1V confirm line [facility] DATE OF EXAM: 04/23/2018 COMPARISON: 12/09/2013 HISTORY: Check tube placement TECHNIQUE: Single frontal view of the chest is obtained. FINDINGS: Endotracheal tube is 7 cm from the jasper. Lungs are clear. There is no heart failure. The re is plate fixating the right clavicle. There is no pneumothorax. There are chest leads. Heart size is fairly normal. IMPRESSION: No active cardiopulmonary disease. No change.
[2018-04-23 04:14] LABS: Basophils # (A) 0.1 k/uL (0-0.2); Basophils % (A) 1 %; Eosinophils # (A) 0.3 k/uL (0-0.7); Eosinophils % (A) 4 %; Lymphocytes # (A) 3.5 k/uL (1.0-4.8); Lymphocytes % (A) 40 %; MCH 31.1 pg (25.0-35.0); MCHC 33.3 g/dL (31.0-37.0); MCV 93.2 fL (80.0-100.0); Mean Platelet Volume 7.9; Monocytes # (A) 0.4 k/uL (0-1.0); Monocytes % (A) 5 %; Neutrophils # (A) 4.3 k/uL (1.3-7.7); Neutrophils % (A) 49 %; Platelet Count 170 k/uL (150-450); RDW 12.3 % (11.5-15.5); WBC 8.8 k/uL (3.8-10.6)
[2018-04-23] MEDS ORDERED: LORazepam 2 MG/ML INJ IV STA ×2 (04:20→04:45)
[2018-04-23 04:24] LABS: Anion Gap 10 mmol/L; Blood Urea Nitrogen 15 mg/dL (9-20); Calcium 8.4 mg/dL (8.4-10.2); Carbon Dioxide 23 mmol/L (22-30); Chloride 112 mmol/L (98-107); Glucose 81 mg/dL (74-99); Potassium 3.6 mmol/L (3.5-5.1); Sodium 145 mmol/L (137-145)
[2018-04-23 04:33] LABS: Alcohol 293 mg/dL
[2018-04-23 04:40] LABS: Appearance,Urine Clear (Clear); Bilirubin,Urine Negative (Negative); Blood,Urine Negative (Negative); Color,Urine Light Yellow; Glucose,Urine (UA) Negative (Negative); Ketones,Urine Negative (Negative); Leukocyte Esterase,Urine Negative (Negative); Nitrite,Urine Negative (Negative); Protein,Urine Negative (Negative); Specific Gravity,Urine 1.005 (1.001-1.035); Urobilinogen,Urine <2.0 mg/dL (<2.0)
[2018-04-23 05:01] LABS: ABG Base Excess -0.3 mmol/L; ABG HCO3 25 mmol/L (21-25); ABG PCO2 44 mmHg (35-45); ABG PH 7.37 (7.35-7.45); ABG PO2 >400 mmHg (83-108); ABG TCO2 26 mmol/L (19-24)
[2018-04-23 05:08] LABS: Amphetamine Screen,Urine Not Detected (NotDetected); Barbiturate Screen,Urine Not Detected (NotDetected); Benzodiazepines Screen,Urine Not Detected (NotDetected); Cocaine Screen,Urine Not Detected (NotDetected); Methadone Screen, Urine Not Detected (NotDetected); Opiate Screen,Urine Not Detected (NotDetected); Oxycodone Screen, Urine Not Detected (NotDetected); Phencyclidine Screen,Urine Not Detected (NotDetected); Tricyclic Antidepressant,Urine Not Detected (NotDetected); Urn Cannabinoid Scrn Not Detected (NotDetected)
[2018-04-23] MEDS ORDERED: ONDANSETRON 4 MG/2 ML VIAL IVP STA (06:03)
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
--- NOTE | 2018-04-23 06:20 | CT ---
EXAM: CT Head Without Intravenous Contrast CLINICAL HISTORY: AMS, ETOH TECHNIQUE: Axial computed tomography images of the head/brain without intravenous contrast. DLP is 1222.4 mGy-cm. This CT exam was performed using one or more of the following dose reduction techniques: automated exposure control, adjustment of the mA and/or kV according to patient size, and/or use of iterative reconstruction technique. COMPARISON: CT head dated 02/19/2014. FINDINGS: Brain: No evidence of acute transcortical infarct or acute intracranial hemorrhage. No significant white matter disease. Ventricles: Unremarkable. No ventriculomegaly. Bones/joints: Unremarkable. No acute fracture. Soft tissues: Unremarkable. Sinuses: Mild mucosal thickening of the visualized bilateral maxillary sinuses along with the bilateral frontal sinuses and ethmoid air cells. Mild mucosal thickening is also seen involving the bilateral sphenoid sinuses. These findings are more conspicuous on this study than the prior. Mastoid air cells: Unremarkable as visualized. No mastoid effusion. IMPRESSION: 1. No acute intracranial pathology. 2. Mild paranasal sinus disease, more conspicuous on this study than the prior.
[2018-04-23] MEDS ORDERED: NALOXONE 0.4 MG/ML 1 ML VIAL IV PRN (07:21)
[2018-04-23] MEDS: SODIUM CHLORIDE 0.9% 1,000 ML IV SCH ×3 (08:20→23:17)
[2018-04-23 08:57] LABS: Glucose,Whole Blood 85 mg/dL (75-99)
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
[2018-04-23 12:17] VITALS: BMI 19.8
[2018-04-23] MEDS: THIAMINE 100 MG/ML 2 ML VIAL IVP SCH (13:11)
[2018-04-23] MEDS: PANTOPRAZOLE 40 MG/10 ML VIAL IVP SCH (13:16)
[2018-04-23] MEDS ORDERED: IBUPROFEN 600 MG TAB PO PRN (20:56)
[2018-04-24 05:16] LABS: Basophils % (A) 0 %; Eosinophils # (A) 0.1 k/uL (0-0.7); Eosinophils % (A) 1 %; HCT 37.7 % (39.0-53.0); HGB 12.6 gm/dL (13.0-17.5); Lymphocytes # (A) 1.5 k/uL (1.0-4.8); Lymphocytes % (A) 14 %; MCH 31.1 pg (25.0-35.0); MCHC 33.4 g/dL (31.0-37.0); MCV 93.3 fL (80.0-100.0); Mean Platelet Volume 7.8; Monocytes # (A) 0.7 k/uL (0-1.0); Monocytes % (A) 7 %; Neutrophils # (A) 8.2 k/uL (1.3-7.7); Neutrophils % (A) 78 %; Platelet Count 154 k/uL (150-450); RBC 4.04 m/uL (4.30-5.90); RDW 12.3 % (11.5-15.5); WBC 10.5 k/uL (3.8-10.6)
[2018-04-24 05:26] LABS: Anion Gap 7 mmol/L; Blood Urea Nitrogen 12 mg/dL (9-20); Calcium 8.6 mg/dL (8.4-10.2); Carbon Dioxide 23 mmol/L (22-30); Chloride 110 mmol/L (98-107); Glucose 107 mg/dL (74-99); Magnesium 2.1 mg/dL (1.6-2.3); Sodium 140 mmol/L (137-145)
[2018-04-24] MEDS: SODIUM CHLORIDE 0.9% 1,000 ML IV SCH ×2 (05:38→09:57)
--- NOTE | 2018-04-24 06:37 | XR ---
EXAMINATION TYPE: XR chest 1V DATE OF EXAM: 04/24/2018 HISTORY: GILBERTO. REFERENCE: Previous study dated 12/09/2013. FINDINGS: There is been interval internal fixation of the right clavicle. The lungs are clear. Pleural space are clear. The heart is not enlarged. IMPRESSION: NO ACUTE INTRATHORACIC ABNORMALITY.
[2018-04-24] MEDS ORDERED: AMOXIC-POT CLAV 875-125MG 1 EACH TAB PO SCH (09:00)
[2018-04-24] MEDS: PANTOPRAZOLE 40 MG/10 ML VIAL IVP SCH (09:56)
[2018-04-24] MEDS: THIAMINE 100 MG/ML 2 ML VIAL IVP SCH (09:56)
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
[2018-04-24 10:58] VITALS: PULSE 59; RESP 16; TEMP 98.4
[2018-04-24 11:22] VITALS: BP 115/71
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
== END 2018-04-24 13:24 | disposition home or self-care (01) | DRG 208 ==
LOC: EC 03:05 → 2SICU 07:23 → 4SSUR 04-24 11:22
PROVIDERS: ADMIT Hospitalist; ATTEND Hospitalist
PROC: 5A1935Z Respiratory Ventilation, Less than 24 Consecutive Hours (ICD-10-PCS; principal; 2018-04-23)
PROC: 0BH17EZ Insertion of Endotracheal Airway into Trachea, Via Natural or Artificial Opening (ICD-10-PCS; 2018-04-23)
DX: J69.0 Pneumonitis due to inhalation of food and vomit (principal); J96.00 Acute respiratory failure, unspecified whether with hypoxia or hypercapnia; G92 Toxic encephalopathy; F84.5 Asperger's syndrome; F17.210 Nicotine dependence, cigarettes, uncomplicated; F10.129 Alcohol abuse with intoxication, unspecified; F41.9 Anxiety disorder, unspecified; T51.0X1A Toxic effect of ethanol, accidental (unintentional), initial encounter; K21.9 Gastro-esophageal reflux disease without esophagitis; Y90.8 Blood alcohol level of 240 mg/100 ml or more; Z78.1 Physical restraint status; F31.9 Bipolar disorder, unspecified; R11.2 Nausea with vomiting, unspecified
CPT/HCPCS: 31500; 36415; 36600; 70450; 71045; 80048; 80306; 80320; 81003; 82805; 83735; 85025; 87070; 87205; 93005; 94002; 96374; 96375; 96376; 99291

== ENCOUNTER → 2018-10-13 | Outpatient (CLI) | payer OTHER ==
--- NOTE | 2018-10-14 10:01 | ECHOF ---
Referral Reason:Syncope R55, R00.2 Palpitations MEASUREMENTS -------- HEIGHT: 188.0 cm WEIGHT: 66.2 kg BP: 130/70 RVIDd: 2.8 cm (< 3.3) IVSd: 0.9 cm (0.6 - 1.1) LVIDd: 4.6 cm (3.9 - 5.3) LVPWd: 1.0 cm (0.6 - 1.1) IVSs: 1.6 cm LVIDs: 2.7 cm LVPWs: 1.4 cm LA Diam: 2.7 cm (2.7 - 3.8) LAESV Index (A-L): 20.35 ml/m Ao Diam: 3.1 cm (2.0 - 3.7) AV Cusp: 2.1 cm (1.5 - 2.6) EPSS: 0.5 cm MV E Zohaib: 0.68 m/s MV DecT: 96 ms MV A Zohaib: 0.45 m/s MV E/A Ratio: 1.50 RAP: 5.00 mmHg RVSP: 24.35 mmHg MV EF SLOPE: 112.09 mm/s (70 - 150) MV EXCURSION: 2.05 cm (> 18.000) FINDINGS -------- Sinus rhythm. This was a technically excellent study. The left ventricular size is normal. Left ventricular wall thickness is normal. Overall left vent ricular systolic function is normal with, an EF between 55 - 60 %. The right ventricle is normal in size. Normal LA size by volume 22+/-6 ml/m2. The right atrium is normal in size. The aortic valve is trileaflet and appears structurally normal. The mitral valve is normal. Mild tricuspid regurgitation present. Right ventricular systolic pressure is normal at < 35 mmHg. Trace/mild (physiologic) pulmonic regurgitation. The aortic root size is normal. Normal inferior vena cava with normal inspiratory collapse consistent with estimated right atrial pre ssure of 5 mmHg. There is no pericardial effusion. CONCLUSIONS -------- 1. Sinus rhythm. 2. This was a technically excellent study. 3. The left ventricular size is normal. 4. Left ventricular wall thickness is normal. 5. Overall left ventricular systolic function is normal with, an EF between 55 - 60 %. 6. The right ventricle is normal in size. 7. Normal LA size by volume 22+/-6 ml/m2. 8. The right atrium is normal in size. 9. The aortic valve is trileaflet and appears structurally normal. 10. The mitral valve is normal. 11. Mild tricuspid regurgitation present. 12. Right ventricular systolic pressure is normal at < 35 mmHg. 13. Trace/mild (physiologic) pulmonic regurgitation. 14. The aortic root size is normal. 15. Normal inferior vena cava with normal inspiratory collapse consistent with estimated right atrial pressure of 5 mmHg. 16. There is no pericardial effusion. [employer]IST: SHAHEED Donnelly
== END | disposition home or self-care (01) ==
LOC: RADECHMAIN 13:46
PROVIDERS: ATTEND Internal Medicine
DX: I07.1 Rheumatic tricuspid insufficiency (principal); I37.1 Nonrheumatic pulmonary valve insufficiency; Z88.5 Allergy status to narcotic agent
CPT/HCPCS: 93306

== ENCOUNTER 2019-06-13 15:59 | Emergency (ER) | payer OTHER ==
[2019-06-13 16:16] VITALS: PULSE 61; RESP 18
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
[2019-06-13] MEDS ORDERED: ALPRAZolam 1 MG TAB PO STA (17:46)
[2019-06-13 18:19] VITALS: BP 135/87; TEMP 98.3
== END 2019-06-13 18:19 | disposition home or self-care (01) ==
LOC: EC 15:59 → EEVIPCON 15:59 → EC 18:19
DX: F41.0 Panic disorder [episodic paroxysmal anxiety] (principal); F17.200 Nicotine dependence, unspecified, uncomplicated; Z88.5 Allergy status to narcotic agent
CPT/HCPCS: 99284